=== PATIENT | male | born 1950 | race Caucasian/White ===

== ENCOUNTER 2020-12-09 17:28 | Emergency (ER) | payer MEDICARE ==
[2020-12-09] MEDS ORDERED: Potassium Chloride 20 MEQ Tab.ER PO ONE (18:54)
--- NOTE | 2020-12-09 19:10 | EDM.PDOC ---
ED HPI GENERAL MEDICAL PROBLEM - General Chief Complaint: General Stated Complaint: UNRESPONSIVE Time Seen by Provider: 12/09/20 17:40 Source of Information: Reports: Patient History Limitations: Reports: No Limitations - History of Present Illness INITIAL COMMENTS - FREE TEXT/NARRATIVE: pt presents to ER via EMS. pt presents history of feeling as though he had to have a BM while driving, he felt tingly and light headed and states "I think I passed out at that time." pt states he woke up and did not feel "groggy" or any other feelings of BM, or "tingly" provides history of syncopal episodes associated with vasovagal stimuli. most recently about 6 months ago while sitting on the toilet. pt states last healthcare experience was a "kidney infection and hospitalization in May this year" pt denies fever, weakness, numbness, SOB, cough, chills, dysuria. pt states he is an [id number] and drinks sparse fluids throughout the day. Onset: Today - Related Data Allergies Allergy/AdvReac Type Severity Reaction Status Date / Time No Known Allergies Allergy Verified 12/09/20 18:37 Home Meds: Home Meds Ciprofloxacin 500 mg PO BID 7 Days #14 ml 12/09/20 [Rx] Finasteride 5 mg PO DAILY 12/09/20 [History] Tamsulosin HCl [Flomax] 0.4 mg PO DAILY 12/09/20 [History] Past Medical History Cardiovascular History: Reports: Other (See Below) Other Cardiovascular History: vagal episode Genitourinary History: Reports: Prostate Disorder, UTI, Recurrent Dermatologic History: Reports: Venous Stasis Dermatitis Other Dermatologic History: RT lower leg swelling Social & Family History - Tobacco Use Tobacco Use Status *Q: Former Tobacco User Used Tobacco, but Quit: Yes Month/Year Tobacco Last Used: 2014 - Caffeine Use Caffeine Use: Reports: Coffee - Recreational Drug Use Recreational Drug Use: No ED ROS GENERAL - Review of Systems Review Of Systems: Comprehensive ROS is negative, except as noted in HPI. ED EXAM, GENERAL - Physical Exam Exam: See Below Exam Limited By: No Limitations General Appearance: Alert, WD/WN, No Apparent Distress Eye Exam: Bilateral Eye: EOMI, PERRL Ears: Normal External Exam, Normal Canal Nose: Normal Inspection, Normal Mucosa Throat/Mouth: Normal Oropharynx, Normal Voice, No Airway Compromise Head: Atraumatic, Normocephalic Respiratory/Chest: No Respiratory Distress, Lungs Clear, Normal Breath Sounds, No Accessory Muscle Use, Chest Non-Tender Cardiovascular: Normal Peripheral Pulses, Regular Rate, Rhythm, No Edema, No Murmur Peripheral Pulses: 2+: Radial (L), Radial (R), Posterior Tibial (L), Posterior Tibial (R) GI/Abdominal: Normal Bowel Sounds, Soft, Non-Tender Extremities: Normal Inspection, Normal Range of Motion, Non-Tender, No Pedal Edema Neurological: Alert, Oriented, CN II-XII Intact, Normal Cognition, Normal Gait, No Motor/Sensory Deficits Psychiatric: Normal Affect, Normal Mood Skin Exam: Warm, Dry, Intact, No Rash Course - Vital Signs Last Recorded V/S: Last Vital Signs Temp 97.2 F 12/09/20 18:43 Pulse 67 12/09/20 18:43 Resp 20 12/09/20 18:43 BP 123/64 12/09/20 18:43 Pulse Ox 93 L 12/09/20 18:43 - Orders/Labs/Meds Orders: Active Orders 24 hr Category Date Time Status EKG Documentation Completion [RC] ASDIRECTED Care 12/09/20 18:06 Active CXR [Chest 1V Frontal] [CR] Stat Exams 12/09/20 18:05 Taken CORONAVIRUS COVID-19 BHARATI [MOLEC] Stat Lab 12/09/20 18:22 Received UA RFX GABE AND CULT IF INDIC [URIN] Stat Lab 12/09/20 18:55 Ordered Labs: Laboratory Tests 12/09/20 12/09/20 Range/Units 18:15 18:20 WBC 7.0 (4.0-11.0) K/uL RBC 4.20 L (4.50-6.50) M/uL Hgb 12.9 L (13.0-18.0) g/dL Hct 39.0 L (40.0-54.0) % MCV 93 (76-96) fL MCH 30.7 (27.0-32.0) pg MCHC 33.1 (31.0-35.0) g/dL RDW 14.6 (11.0-16.0) % Plt Count 167 (150-400) K/uL MPV 10.9 H (6.0-10.0) fL Neut % (Auto) 70.0 (45.0-70.0) % Lymph % (Auto) 25.5 (20.0-40.0) % [place] % (Auto) 2.7 L (3.0-10.0) % Eos % (Auto) 1.7 (1.0-5.0) % Baso % (Auto) 0.1 (0.0-0.5) % Neut # (Auto) 4.88 (2.00-7.50) K/uL Lymph # (Auto) 1.78 (1.50-4.00) K/uL [place] # (Auto) 0.19 L (0.20-0.80) K/uL Eos # (Auto) 0.12 (0.04-0.40) K/uL Baso # (Auto) 0.01 L (0.02-0.10) K/uL Sodium 145 (136-145) mmol/L Potassium 3.2 L (3.5-5.1) mmol/L Chloride 107 (98-107) mmol/L Carbon Dioxide 25.9 (21.0-32.0) mmol/L Anion Gap 15.3 H (5.0-15.0) mmol/L BUN 20 (8-26) mg/dL Creatinine 1.15 (0.70-1.30) mg/dL Est Cr Clr Drug Dosing 75.33 mL/min Estimated GFR (MDRD) > 60 (>60) MLS/MIN BUN/Creatinine Ratio 17.4 (6-25) Glucose 176 H (74-100) mg/dL Calcium 9.1 (8.5-10.1) mg/dL Magnesium 2.1 (1.8-2.4) mg/dL Total Bilirubin 1.2 H (0.0-1.0) mg/dL AST 30 (15-37) U/L ALT 32 (12-78) U/L Alkaline Phosphatase 84 (46-116) U/L Troponin I < 0.017 (0.000-0.060) ng/mL Total Protein 7.7 (6.4-8.2) g/dL Albumin 4.0 (3.4-5.0) g/dL Globulin 3.7 (2.2-4.2) g/dL Albumin/Globulin Ratio 1.1 (0.8-2.0) Meds: Medications Discontinued Medications Generic Name Dose Route Start Last Admin Trade Name Enrike PRN Reason Stop Dose Admin Potassium Chloride 20 meq 12/09/20 18:54 Potassium Chloride 20 Meq Tab.Er PO 12/09/20 18:55 ONETIME ONE Departure - Departure Time of Disposition: 19:31 Disposition: Home, Self-Care 01 Condition: Good Clinical Impression: UTI (urinary tract infection), Vasovagal episode - Discharge Information *PRESCRIPTION DRUG MONITORING PROGRAM REVIEWED*: Not Applicable *COPY OF PRESCRIPTION DRUG MONITORING REPORT IN PATIENT JOSE: Not Applicable Prescriptions: Ciprofloxacin 500 mg PO BID 7 Days #14 ml Referrals: PCP,None [Primary Care Provider] - Additional Instructions: drink at least 100oz of water a day ciprofloxacin (antibiotic) 500mg two times per day for the next 7 days (prescription sent to [facility]) follow up with primary care early next week (call for an appointment in the morning) call or return if any new questions or concerns Sepsis Event Note (ED) - Evaluation Sepsis Screening Result: No Definite Risk - Focused Exam Vital Signs: Vital Signs Temp Temp Pulse Resp BP Pulse Ox 12/09/20 18:43 97.2 F 97.2 F 67 20 123/64 93 L 12/09/20 18:08 63 16 144/58 H 93 L 12/09/20 17:40 97 F 64 16 116/70 95 - Problem List & Annotations (1) UTI (urinary tract infection) SNOMED Code(s): 14021761 Code(s): N39.0 - URINARY TRACT INFECTION, SITE NOT SPECIFIED Status: Acute Current Visit: Yes (2) Vasovagal episode SNOMED Code(s): 529169200 Code(s): R55 - SYNCOPE AND COLLAPSE Status: Acute Current Visit: Yes - Problem List Review Problem List Initiated/Reviewed/Updated: Yes - My Orders Last 24 Hours: My Active Orders 12/09/20 18:05 CXR [Chest 1V Frontal] [CR] Stat 12/09/20 18:06 EKG Documentation Completion [RC] ASDIRECTED 12/09/20 18:22 CORONAVIRUS COVID-19 BHARATI [MOLEC] Stat 12/09/20 18:55 UA RFX GABE AND CULT IF INDIC [URIN] Stat - Assessment/Plan Last 24 Hours: My Active Orders 12/09/20 18:05 CXR [Chest 1V Frontal] [CR] Stat 12/09/20 18:06 EKG Documentation Completion [RC] ASDIRECTED 12/09/20 18:22 CORONAVIRUS COVID-19 BHARATI [MOLEC] Stat 12/09/20 18:55 UA RFX GABE AND CULT IF INDIC [URIN] Stat Assessment:: vasovagal syncope, UTI plan: cipro for UTI syncope noted EKG and cardiac monitoring throughout were well within normal limits considered seizure but with history of vasovagal episodes and lack of post ictal period, this is unlikely.
[2020-12-09] MEDS ORDERED: Ciprofloxacin 500 MG Tab PO ONE (19:29)
[2020-12-09] MEDS ORDERED: Ciprofloxacin 500 MG Tab ONE (19:30)
--- NOTE | 2020-12-10 13:07 | CR ---
CLINICAL DATA: Syncope. AP CHEST, 09 DECEMBER 2020: No priors. The heart size is normal. The patient has taken a poor inspiration. The pulmonary vasculature appears mildly prominent. It is probably accentuated by the poor inspiration. Pulmonary vascular congestion should be considered. The lungs are clear. No pneumothorax. No pleural effusions. Job: [id number] MTDD
== END 2020-12-09 19:44 | disposition home or self-care (01) ==
LOC: LB.ED 17:28
DX: R55 Syncope and collapse (principal); N39.0 Urinary tract infection, site not specified; Z87.891 Personal history of nicotine dependence; Z20.822 Contact with and (suspected) exposure to COVID-19
CPT/HCPCS: 36415; 71045; 80053; 81001; 83735; 84484; 85025; 87086; 93005; 99284-25; A0425; A0429; A9270-GY; U0002